=== PATIENT | female | born 1990 | race Caucasian/White ===

== ENCOUNTER 2020-10-10 22:15 | Emergency (ER) | payer BC ==
[~2020-10-10] VITALS: Ht 162.6 cm; Wt 54.1 kg
[~2020-10-10 22:15] MED LIST: ATIVAN 0.50.5 MG/TAB PO; CELEXA10 MG; KLONOPIN 0.5MG0.5 MG; LAMICTAL200 MG; LORTAB 5/500 501 TAB PO; MOTRIN 400400 MG/TAB PO; NO HOME MEDICATIONS; PERCOCET 325 MG1 TA2 PO
[2020-10-10 22:20] VITALS: TEMP 98
[2020-10-11 00:55] VITALS: BP 120/80; PULSE 88
== END 2020-10-11 01:00 | disposition home or self-care (01) ==
LOC: COL.ER 22:15
DX: R51.9 Headache, unspecified (principal); M54.2 Cervicalgia; Z88.0 Allergy status to penicillin; W01.0XXA Fall on same level from slipping, tripping and stumbling without subsequent striking against object, initial encounter; Y92.009 Unspecified place in unspecified non-institutional (private) residence as the place of occurrence of the external cause
CPT/HCPCS: J1885; J2060